=== PATIENT | female | born 1985 | race Caucasian/White ===

== ENCOUNTER 2018-03-25 21:27 | Emergency (ER) | payer BC ==
[2018-03-25 21:43] VITALS: BP 113/79
[2018-03-25] MEDS ORDERED: Azithromycin TAB* 250 MG PO ONE (21:53)
--- NOTE | 2018-03-25 21:53 | UC ---
Respiratory Complaint HPI - HPI Summary HPI Summary: Pt c/o worsening chest congestion, cough and generalized malaise X 5 days. Pt has history of asthma but has not been using her rescue inhaler. Pt traveled recently for work and is 10 month baby - History of Current Complaint Stated Complaint: UPPER RESPIRATORY Time Seen by Provider: 03/25/18 21:35 Hx Obtained From: Patient Hx Last Menstrual Period: 03/23/18 ?: No Onset/Duration: Gradual Onset, Lasting Days, Still Present, Worse Since - onset Timing: Constant Severity Initially: Mild Severity Currently: Mild Pain Intensity: 2 Character: Cough: Productive Aggravating Factors: Allergens, Deep Breaths, Recumbent Position Alleviating Factors: Nothing Associated Signs And Symptoms: Positive: Chills, URI, Nasal Congestion Related History: Seasonal Allergies - Risk Factors Pulmonary Embolism Risk Factors: Recent Travel Cardiac Risk Factors: Negative Pseudomonas Risk Factors: Negative Tuberculosis Risk Factors: Negative - Allergies/Home Medications Allergies/Adverse Reactions: Allergies Allergy/AdvReac Type Severity Reaction Status Date / Time No Known Allergies Allergy Verified 03/25/18 21:35 Home Medications: Home Medications "Mini" Bcp 1 tab PO DAILY 03/25/18 [History] Albuterol HFA INHALER* [Ventolin HFA Inhaler*] 2 puff INH Q4H PRN 03/25/18 [ History Confirmed 03/25/18] Fexofenadine (NF) [Rylee 180 (NF)] 180 mg PO DAILY 03/25/18 [History Confirmed 03/25/18] Fluticasone NASAL SPRAY 50MCG* [Flonase NASAL SPRAY 50MCG*] 2 spray BOTH NARES DAILY 03/25/18 [History Confirmed 03/25/18] Vits96/Iron Fum/Folic [ Tablet] 1 tab PO DAILY 03/25/18 [ History Confirmed 03/25/18] PMH/Surg Hx/FS Hx/Imm Hx Previously Healthy: Yes - Surgical History Surgical History: Yes Surgery Procedure, Year, and Place: ONCE. D&C - Family History Known Family History: Positive: Cardiac Disease - Social History Occupation: Employed Full-time Lives: With Family Alcohol Use: Occasionally Substance Use Type: None Smoking Status (MU): Never Smoked Tobacco Have You Smoked in the Last Year: No Review of Systems Constitutional: Fever, Chills, Fatigue Skin: Negative Eyes: Negative ENT: Sore Throat, Nasal Discharge, Sinus Congestion Respiratory: Cough Cardiovascular: Chest Pain - non cardiac, chest congestion Gastrointestinal: Negative Genitourinary: Negative Motor: Negative Neurovascular: Negative Musculoskeletal: Myalgia Neurological: Negative Psychological: Negative Is Patient Immunocompromised?: No All Other Systems Reviewed And Are Negative: Yes Physical Exam Triage Information Reviewed: Yes Appearance: Ill-Appearing Vital Signs: Initial Vital Signs Temp 98.5 F 03/25/18 21:38 Pulse 99 03/25/18 21:38 Resp 17 03/25/18 21:38 BP 113/79 03/25/18 21:38 Pulse Ox 100 03/25/18 21:38 Vital Signs Reviewed: Yes Eye Exam: Normal ENT: Positive: Pharyngeal erythema, Nasal congestion, Tonsillar swelling Dental Exam: Normal Neck exam: Normal Respiratory: Positive: Wheezing - upper lobes, Other: - upper respiratory congestion, Cardiovascular Exam: Normal Musculoskeletal Exam: Normal Neurological Exam: Normal Psychological Exam: Normal Skin Exam: Normal UC Diagnostic Evaluation - Laboratory O2 Sat by Pulse Oximetry: 100 Respiratory Course/Dx - Differential Dx/Diagnosis Differential Diagnosis/HQI/PQRI: Bronchitis, Influenza Provider Diagnoses: bronchitis Discharge - Sign-Out/Discharge Documenting (check all that apply): Patient Departure All imaging exams completed and their final reports reviewed: No Studies - Discharge Plan Condition: Stable Disposition: HOME Prescriptions: Azithromycin TAB* [Zithromax TAB (Z-NORA) 250 mg #6 tabs] 250 mg PO DAILY #4 tab Patient Education Materials: Acute Bronchitis (ED) Referrals: Mariya Lerma MD [Primary Care Provider] - If Needed - Billing Disposition and Condition Condition: STABLE Disposition: Home
== END 2018-03-25 22:02 | disposition home or self-care (01) ==
LOC: UCCORT 21:27
DX: J45.909 Unspecified asthma, uncomplicated (principal)
CPT/HCPCS: 99202; A9270-GY; G0463